=== PATIENT | female | born 1990 | race Caucasian/White ===

== ENCOUNTER → 2016-07-11 | Outpatient (CLI) | payer MEDICAID | END | disposition home or self-care (01) | LOC: RAD.S 15:47 | DX: N63 Unspecified lump in breast (principal) ==

== ENCOUNTER 2016-10-11 08:57 | Emergency (ER) | payer BC, MEDICAID ==
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
== END 2016-10-11 11:20 | disposition home or self-care (01) ==
LOC: ER 08:57
DX: S00.83XA Contusion of other part of head, initial encounter (principal); Y04.2XXA Assault by strike against or bumped into by another person, initial encounter